=== PATIENT | female | born 1980 | race Caucasian/White ===

== ENCOUNTER 2018-08-16 16:49 | Inpatient (IN) ==
[2018-08-16 18:07] LABS: Apearance,Urine Slightly Hazy (Clear); Bilirubin,Urine Negative (Negative); Blood, Urine Negative (Negative); Glucose,Urine (UA) Negative (Negative); Ketones,Urine 5 mg/dL (Negative); Mucus,Urine Occasional /LPF (Occasional); Nitrite,Urine Negative (Negative); Protein,Urine Negative; RBC,Urine 1 /HPF (0-4); Squamous Epithelial Cell,Urine Moderate /HPF (0-10); Urine Color Yellow (Yellow); Urine Specific Gravity 1.015 (1.001-1.035); Urine Urobilinogen < 2.0 EU/DL (0.2-1.0); WBC,Urine 1 /HPF (0-6)
[2018-08-16 18:12] LABS: Alanine Aminotransferase 25 U/L (13-56); Albumin 3.9 G/DL (3.4-5.0); Alkaline Phosphatase 111 U/L (45-117); Aspartate Amino Transferase 16 U/L (0-37); Bilirubin,Total < 0.39 MG/DL (0.2-1.0); Blood Urea Nitrogen 8 MG/DL (7-18); Calcium 8.9 MG/DL (8.5-10.1); Glucose 100 MG/DL (74-106); Osmolality,Calculated 278.3 MOS/KG (273-304); Total Protein 7.7 G/DL (6.4-8.3)
[2018-08-16 18:36] LABS: Basophils # 0.1 10*3/uL (0.0-0.2); Basophils % 0.7 % (0.0-0.8); Eosinophils # 0.4 10*3/uL (0.0-0.87); Eosinophils % 3.2 % (0.00-10.9); Hematocrit 36.4 VOL% (35.7-47.0); Immature Granulocytes % 1.6 %; Immature Granulocytes Absolute 0.17 #; Lymphocytes # 3.6 10*3/uL (1.4-4.0); Lymphocytes % 32.8 % (21.3-54.2); Mean Corpuscular HGB Conc 29.4 GM/DL (32-36); Mean Corpuscular Volume 79.5 FL (87-102); Mean Platelet Volume 10.9 FL (9.6-12.0); Monocytes % 8.6 % (1.7-12.7); NRBC # 0.02 10*3/uL; Neutrophils % 53.1 % (38.7-73.9); Platelet Count 297 T/CUMM (130-400); Red Blood Count 4.58 MC/CUMM (3.8-5.5); Red Cell Distribution Width 17.4 % (9.3-17.3); White Blood Count 10.9 T/CUMM (4-12)
[2018-08-16 18:37] LABS: Hemoglobin 10.7 GM/DL (12.0-16.0)
[2018-08-16] MEDS ORDERED: methylPREDNISolone SOD SUC 125 MG/2 ML VIAL IV STA (18:49)
[2018-08-16] MEDS ORDERED: ONDANSETRON 4 MG/2 ML VIAL IV PRN (19:33)
[2018-08-16] MEDS ORDERED: ACETAMINOPHEN 500 MG TABLET PO PRN (19:43)
[2018-08-16] MEDS ORDERED: clonazePAM 0.5 MG TABLET PO ONE (21:00)
[2018-08-16] MEDS: MECLIZINE 25 MG TABLET PO SCH (21:23)
[2018-08-16] MEDS: ENOXAPARIN 40 MG/0.4 ML SYRINGE SUBCUT SCH (21:23)
[2018-08-17 06:04] LABS: Basophils # 0.1 10*3/uL (0.0-0.2); Basophils % 0.7 % (0.0-0.8); Eosinophils # 0.1 10*3/uL (0.0-0.87); Eosinophils % 1.1 % (0.00-10.9); Hematocrit 34.7 VOL% (35.7-47.0); Hemoglobin 10.5 GM/DL (12.0-16.0); Immature Granulocytes % 1.8 %; Immature Granulocytes Absolute 0.16 #; Lymphocytes # 1.9 10*3/uL (1.4-4.0); Lymphocytes % 21.5 % (21.3-54.2); Mean Corpuscular HGB Conc 30.3 GM/DL (32-36); Mean Corpuscular Volume 78.9 FL (87-102); Mean Platelet Volume 11.6 FL (9.6-12.0); Monocytes % 4.4 % (1.7-12.7); NRBC # 0.04 10*3/uL; Neutrophils % 70.5 % (38.7-73.9); Platelet Count 313 T/CUMM (130-400); Red Cell Distribution Width 17.3 % (9.3-17.3)
[2018-08-17 06:23] LABS: Albumin 3.5 G/DL (3.4-5.0); Bilirubin,Total 0.6 MG/DL (0.2-1.0); Calcium 9.2 MG/DL (8.5-10.1); Osmolality,Calculated 279.4 MOS/KG (273-304); Total Protein 7.1 G/DL (6.4-8.3)
[2018-08-17] MEDS: LORazepam 2 MG/1 ML VIAL IV SCH ×2 (06:35→18:51)
[2018-08-17] MEDS: methylPREDNISolone SOD SUC 125 MG/2 ML VIAL IV SCH ×2 (06:37→18:54)
[2018-08-17] MEDS: DULoxetine 30 MG CAPSULE PO SCH (10:27)
[2018-08-17] MEDS: MECLIZINE 25 MG TABLET PO SCH ×3 (10:27→20:58)
[2018-08-17] MEDS: PANTOPRAZOLE 40 MG TABLET PO SCH (10:27)
[2018-08-17] MEDS ORDERED: ALPRAZolam 0.5 MG TABLET PO ONE (11:17)
[2018-08-17 17:38] LABS: Folate 6.5 NG/ML (5.4-24.0)
[2018-08-17] MEDS: TAMSULOSIN 0.4 MG CAPSULE PO SCH (20:58)
[2018-08-17] MEDS: clonazePAM 0.5 MG TABLET PO SCH (20:58)
[2018-08-17] MEDS: ENOXAPARIN 40 MG/0.4 ML SYRINGE SUBCUT SCH (20:58)
[2018-08-18] MEDS: LORazepam 2 MG/1 ML VIAL IV SCH ×2 (06:30→20:07)
[2018-08-18] MEDS: methylPREDNISolone SOD SUC 125 MG/2 ML VIAL IV SCH ×2 (06:32→20:09)
[2018-08-18] MEDS: MECLIZINE 25 MG TABLET PO SCH ×3 (08:48→21:32)
[2018-08-18] MEDS: DULoxetine 30 MG CAPSULE PO SCH (08:48)
[2018-08-18] MEDS: PANTOPRAZOLE 40 MG TABLET PO SCH (08:48)
[2018-08-18] MEDS: clonazePAM 0.5 MG TABLET PO SCH ×2 (08:48→21:32)
[2018-08-18] MEDS: ENOXAPARIN 40 MG/0.4 ML SYRINGE SUBCUT SCH (21:32)
[2018-08-18] MEDS: TAMSULOSIN 0.4 MG CAPSULE PO SCH (21:32)
[2018-08-19] MEDS: LORazepam 2 MG/1 ML VIAL IV SCH (06:32)
[2018-08-19] MEDS: methylPREDNISolone SOD SUC 125 MG/2 ML VIAL IV SCH (06:35)
[2018-08-19] MEDS: PANTOPRAZOLE 40 MG TABLET PO SCH (08:53)
[2018-08-19] MEDS: clonazePAM 0.5 MG TABLET PO SCH (08:53)
[2018-08-19] MEDS: DULoxetine 30 MG CAPSULE PO SCH (08:53)
[2018-08-19] MEDS: MECLIZINE 25 MG TABLET PO SCH (08:53)
[2018-08-19 12:01] VITALS: BP 132/80
== END 2018-08-19 13:35 | disposition home or self-care (01) | DRG 60 ==
LOC: N.ED 16:49 → N.EDINP 19:33 → N.4E 19:55
PROVIDERS: ADMIT Internal Medicine; ATTEND Internal Medicine